=== PATIENT | female | born 1975 | race Caucasian/White ===

== ENCOUNTER 2016-12-30 23:14 | Emergency (ER) | payer OTHER, BC ==
[~2016-12-30] VITALS: Ht 160 cm; Wt 70.6 kg
[~2016-12-30 23:14] MED LIST: BUPROPION XL300 MG PO; CLONAZEPAM1 MG PO; CYMBALTA60 MG PO; METHYLPHENIDATE36 MG PO; TRAMADOL HCL50 MG PO
[2016-12-31 00:25] VITALS: BP 143/92
== END 2016-12-31 00:32 | disposition home or self-care (01) ==
LOC: EXP 23:14 → EME 23:14 → EXP 12-31 00:32
DX: S80.11XA Contusion of right lower leg, initial encounter (principal); V89.2XXA Person injured in unspecified motor-vehicle accident, traffic, initial encounter; V40.5XXA Car driver injured in collision with pedestrian or animal in traffic accident, initial encounter; F17.200 Nicotine dependence, unspecified, uncomplicated; F32.9 Major depressive disorder, single episode, unspecified; Z88.8 Allergy status to other drugs, medicaments and biological substances
CPT/HCPCS: 73590; 99281; 99284